=== PATIENT | female | born 2000 | race Caucasian/White ===

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

== ENCOUNTER 2021-01-13 16:00 | Emergency (ER) | payer MEDICAID ==
[~2021-01-13] VITALS: Ht 172.7 cm; Wt 154.6 kg
[2021-01-13 16:11] VITALS: BP 128/77
== END 2021-01-13 16:55 | disposition home or self-care (01) ==
LOC: ER 16:01
DX: J06.9 Acute upper respiratory infection, unspecified (principal); Z20.822 Contact with and (suspected) exposure to COVID-19; R05 Cough; J34.89 Other specified disorders of nose and nasal sinuses; K21.9 Gastro-esophageal reflux disease without esophagitis; F41.9 Anxiety disorder, unspecified; F32.9 Major depressive disorder, single episode, unspecified; Z86.718 Personal history of other venous thrombosis and embolism; Z98.890 Other specified postprocedural states; Z79.899 Other long term (current) drug therapy
CPT/HCPCS: 87635; 99283; C9803

== ENCOUNTER 2021-04-27 22:26 | Emergency (ER) | payer MEDICAID ==
[~2021-04-27] VITALS: Ht 172.7 cm; Wt 145.0 kg
[2021-04-27 22:41] VITALS: BP 157/102
[2021-04-27] MEDS ORDERED: HYDR-3965 PO (23:03)
[2021-04-27] MEDS ORDERED: ONDA4TAB6 PO (23:03)
[2021-04-27] MEDS ORDERED: PENI500T2 PO (23:03)
[2021-04-27] MEDS ORDERED: ondansetron 4mg rapidly disintigrating tab PO ONE (23:05)
[2021-04-27] MEDS ORDERED: HYDROcodone/acetaminophen 5mg/325mg tablet PO ONE (23:05)
== END 2021-04-27 23:15 | disposition home or self-care (01) ==
LOC: ER 22:26
DX: K02.9 Dental caries, unspecified (principal); K08.89 Other specified disorders of teeth and supporting structures; K21.9 Gastro-esophageal reflux disease without esophagitis; F41.9 Anxiety disorder, unspecified; F32.9 Major depressive disorder, single episode, unspecified; Z86.718 Personal history of other venous thrombosis and embolism; Z98.890 Other specified postprocedural states; Z79.2 Long term (current) use of antibiotics; Z79.899 Other long term (current) drug therapy
CPT/HCPCS: 99283

== ENCOUNTER 2021-08-01 11:33 | Emergency (ER) | payer MEDICAID ==
[~2021-08-01] VITALS: Ht 167.6 cm; Wt 109.0 kg
[~2021-08-01 11:33] MED LIST changes: +ONDA4TAB6 PO
[2021-08-01] MEDS ORDERED: CASIRIVIMAB/IMDEVIMAB inject. 10 ML in normal saline 100ml IV soln 100 ML IV ONE (13:30)
[2021-08-01] MEDS ORDERED: ALBU8HFA PO (13:37)
[2021-08-01] MEDS ORDERED: ACET-1025 PO (13:37)
[2021-08-01] MEDS ORDERED: CASIRIVIMAB/IMDEVIMAB (REGEN-COV) 600mg/600mg inject. SQ ONE ×4 (13:45)
[2021-08-01] MEDS ORDERED: LORazepam 1 MG tablet PO ONE (13:50)
[2021-08-01 15:29] VITALS: BP 139/97
== END 2021-08-01 15:31 | disposition home or self-care (01) ==
LOC: ER 11:34
DX: U07.1 COVID-19 (principal); J12.82 Pneumonia due to coronavirus disease 2019; R51.9 Headache, unspecified; J02.9 Acute pharyngitis, unspecified; R53.83 Other fatigue; R43.8 Other disturbances of smell and taste; R19.7 Diarrhea, unspecified; R11.0 Nausea; R06.02 Shortness of breath; R05.9 Cough, unspecified; R09.81 Nasal congestion; K21.9 Gastro-esophageal reflux disease without esophagitis; F41.9 Anxiety disorder, unspecified; F32.9 Major depressive disorder, single episode, unspecified; Z86.718 Personal history of other venous thrombosis and embolism; Z98.890 Other specified postprocedural states; Z79.899 Other long term (current) drug therapy
CPT/HCPCS: 71045; 87635; 99284; C9803; M0243; Q0244

== ENCOUNTER 2021-08-04 08:42 | Emergency (ER) | payer MEDICAID ==
[~2021-08-04] VITALS: Ht 172.7 cm; Wt 145.0 kg
[~2021-08-04 08:42] MED LIST changes: +ACET-1025 PO; +ALBU8HFA PO
[2021-08-04] MEDS ORDERED: pantoprazole 40MG/D5 100ML BAG 100 ML IV ONE (11:10)
[2021-08-04] MEDS ORDERED: ondansetron/PF 4mg/2ml inj IV ONE (11:10)
[2021-08-04] MEDS ORDERED: normal saline 1000ML IV soln IVB ONE (11:10)
[2021-08-04] MEDS ORDERED: pantoprazole 40MG/NS 100ML BAG 100 ML IV ONE (11:12)
[2021-08-04 11:51] LABS: BASOPHILS % (AUTO) 0.3 % (0-1); EOSINOPHILS % (AUTO) 0.7 % (0-6); HEMATOCRIT 42.8 % (35.0-45.0); HEMOGLOBIN 14.1 g/dl (12.0-16.0); LYMPHOCYTES # (AUTO) 1.2 X10'3 (1.1-4.8); LYMPHOCYTES % (AUTO) 24.4 % (21-51); MEAN CORPUSCULAR HEMOGLOBIN 25.6 PG (27.0-31.0); MEAN CORPUSCULAR HGB CONC 32.9 g/dL (33.0-36.5); MEAN CORPUSCULAR VOLUME 77.9 FL (78-98); MEAN PLATELET VOLUME 8.2 FL (7.4-10.4); MONOCYTES # (AUTO) 0.4 X10'3 (0-0.9); MONOCYTES % (AUTO) 9.3 % (2-12); NEUTROPHILS # (AUTO) 3.1 X10'3 (1.8-7.7); NEUTROPHILS % (AUTO) 65.3 % (42-75); PLATELET COUNT 257 X10'3 (140-440); RED CELL DISTRIBUTION WIDTH 15.4 % (11.5-14.5); WHITE BLOOD COUNT 4.7 X10'3 (4.5-11.0)
[2021-08-04 12:08] LABS: ALANINE AMINOTRANSFERASE 54 U/L (12-78); ALBUMIN 3.3 G/DL (3.4-5.0); ALBUMIN/GLOBULIN RATIO 0.8 (1.1-1.5); ALKALINE PHOSPHATASE 82 IU/L (20-180); ANION GAP 12 (8-16); ASPARTATE AMINO TRANSFERASE 40 U/L (10-37); BILIRUBIN,TOTAL 0.3 MG/DL (0.1-1.0); BLOOD UREA NITROGEN 9 MG/DL (7-18); CALCIUM 8.7 MG/DL (8.5-10.1); CHLORIDE 107 MMOL/L (99-107); CREATININE 0.69 MG/DL (0.40-0.90); GLUCOSE 90 MG/DL (70-104); LIPASE 118 U/L (73-393); POTASSIUM 3.9 MMOL/L (3.5-5.1); SODIUM 143 MMOL/L (135-145); TOTAL CARBON DIOXIDE 23.8 MMOL/L (24-32); TOTAL PROTEIN 7.5 G/DL (6.4-8.2); eGFR > 90 ML/MIN
[2021-08-04 13:59] LABS: HCG SERUM QL NEGATIVE
[2021-08-04] MEDS ORDERED: iohexol 350MG/ML 100ml bottle IV ONE (14:49)
[2021-08-04] MEDS ORDERED: AZIT250T PO (17:15)
[2021-08-04] MEDS ORDERED: BENZ-38 PO (17:15)
[2021-08-04] MEDS ORDERED: APIX5TAB3 PO ×2 (17:28→17:31)
[2021-08-04 17:39] VITALS: BP 102/69
== END 2021-08-04 17:47 | disposition home or self-care (01) ==
LOC: ER 08:43
DX: U07.1 COVID-19 (principal); M79.7 Fibromyalgia; K21.9 Gastro-esophageal reflux disease without esophagitis; F17.200 Nicotine dependence, unspecified, uncomplicated; F12.90 Cannabis use, unspecified, uncomplicated; Z98.890 Other specified postprocedural states; Z86.718 Personal history of other venous thrombosis and embolism; Z79.2 Long term (current) use of antibiotics; Z79.899 Other long term (current) drug therapy
CPT/HCPCS: 36415; 71045; 71275; 80053; 83690; 84703; 85025; 96361; 96365; 96366; 96375; 99285; C9113; J2405; J7030; Q9967

== ENCOUNTER 2021-08-20 23:13 | Emergency (ER) | payer MEDICAID ==
[~2021-08-20] VITALS: Ht 172.7 cm; Wt 147.0 kg
[~2021-08-20 23:13] MED LIST changes: -ACET-1025 PO; +APIX5TAB3 PO; +BENZ-38 PO
[2021-08-20 23:24] VITALS: BP 153/91
== END 2021-08-21 03:19 | disposition left against medical advice (07) ==
LOC: ER 23:13
DX: M79.605 Pain in left leg (principal); M79.604 Pain in right leg; Z53.21 Procedure and treatment not carried out due to patient leaving prior to being seen by health care provider

== ENCOUNTER 2022-01-04 08:38 | Outpatient (CLI) | payer MEDICAID ==
[~2022-01-04 08:38] MED LIST changes: -ALBU8HFA PO; -BENZ-38 PO
[2022-01-04] MEDS ORDERED: IODIXANOL 270 MG/ML INFUS..BTL 100ML inj. IV ONE (09:40)
== END 2022-01-04 23:59 | disposition home or self-care (01) ==
LOC: RAD 08:38
PROVIDERS: ATTEND Physician Assistant
DX: K76.0 Fatty (change of) liver, not elsewhere classified (principal); K42.9 Umbilical hernia without obstruction or gangrene; M47.814 Spondylosis without myelopathy or radiculopathy, thoracic region; I26.99 Other pulmonary embolism without acute cor pulmonale
CPT/HCPCS: 71260; 74160; Q9967

== ENCOUNTER 2022-01-23 09:35 | Emergency (ER) | payer MEDICAID ==
[~2022-01-23] VITALS: Ht 172.7 cm; Wt 141.8 kg
[2022-01-23 09:41] VITALS: BP 154/97
== END 2022-01-23 12:00 | disposition home or self-care (01) ==
LOC: ER 09:37
DX: J06.9 Acute upper respiratory infection, unspecified (principal); Z20.822 Contact with and (suspected) exposure to COVID-19; K21.9 Gastro-esophageal reflux disease without esophagitis; F41.9 Anxiety disorder, unspecified; F32.9 Major depressive disorder, single episode, unspecified; F12.10 Cannabis abuse, uncomplicated; Z79.899 Other long term (current) drug therapy
CPT/HCPCS: 71045; 87081; 87502; 87503; 87880; 99284

== ENCOUNTER 2022-01-26 12:34 | Emergency (ER) | payer MEDICAID ==
[~2022-01-26] VITALS: Ht 172.7 cm; Wt 141.8 kg
[2022-01-26 12:35] VITALS: BP 153/94
[2022-01-26] MEDS ORDERED: SULF1TAB45 PO (13:46)
== END 2022-01-26 14:15 | disposition home or self-care (01) ==
LOC: ER 12:34
DX: L02.211 Cutaneous abscess of abdominal wall (principal); K21.9 Gastro-esophageal reflux disease without esophagitis; F41.9 Anxiety disorder, unspecified; F12.10 Cannabis abuse, uncomplicated; Z79.899 Other long term (current) drug therapy
CPT/HCPCS: 99281; 99283

== ENCOUNTER 2022-03-09 12:13 | Emergency (ER) | payer MEDICAID ==
[~2022-03-09] VITALS: Ht 172.7 cm; Wt 136.4 kg
[2022-03-09 12:33] VITALS: BP 129/90
[2022-03-09] MEDS ORDERED: gabapentin 300mg capsule PO ONE (14:35)
[2022-03-09] MEDS ORDERED: HYDROcodone/acetaminophen 5mg/325mg tablet PO ONE (16:05)
== END 2022-03-09 16:57 | disposition home or self-care (01) ==
LOC: ER 12:14
DX: M54.59 Other low back pain (principal); M79.604 Pain in right leg; R19.7 Diarrhea, unspecified; K21.9 Gastro-esophageal reflux disease without esophagitis; F31.9 Bipolar disorder, unspecified; F17.200 Nicotine dependence, unspecified, uncomplicated; F12.10 Cannabis abuse, uncomplicated; Z98.890 Other specified postprocedural states; Z79.899 Other long term (current) drug therapy
CPT/HCPCS: 72100; 72220; 73502; 99284

== ENCOUNTER 2022-04-03 15:25 | Emergency (ER) | payer MEDICAID ==
[~2022-04-03] VITALS: Ht 172.7 cm; Wt 140.0 kg
[2022-04-03 15:51] VITALS: BP 157/93
[2022-04-03 17:59] LABS: URINE HCG NEGATIVE (NEG)
== END 2022-04-03 18:52 | disposition home or self-care (01) ==
LOC: ER 15:26
DX: S00.83XA Contusion of other part of head, initial encounter (principal); M54.59 Other low back pain; R42 Dizziness and giddiness; K21.9 Gastro-esophageal reflux disease without esophagitis; F31.9 Bipolar disorder, unspecified; F12.10 Cannabis abuse, uncomplicated; Z79.899 Other long term (current) drug therapy; V49.9XXA Car occupant (driver) (passenger) injured in unspecified traffic accident, initial encounter; Y93.89 Activity, other specified; Y92.89 Other specified places as the place of occurrence of the external cause; Y99.8 Other external cause status
CPT/HCPCS: 70450; 72131; 81025; 99284

== ENCOUNTER 2022-04-15 09:31 | Emergency (ER) | payer MEDICAID | END 2022-04-15 12:00 | disposition left against medical advice (07) | LOC: ER 09:31 | DX: R20.0 Anesthesia of skin (principal); Z53.21 Procedure and treatment not carried out due to patient leaving prior to being seen by health care provider ==

== ENCOUNTER 2022-06-06 20:42 | Emergency (ER) | payer MEDICAID ==
[~2022-06-06] VITALS: Ht 172.7 cm; Wt 137.2 kg
[2022-06-06 20:47] VITALS: BP 127/92
[2022-06-06] MEDS ORDERED: bacitracin 15gm ointment TP ONE (21:05)
[2022-06-06] MEDS ORDERED: cephalexin 500mg capsule PO ONE (21:05)
[2022-06-06] MEDS ORDERED: CLIN45GE4 TOP (21:13)
[2022-06-06] MEDS ORDERED: CEPH-585 PO (21:13)
[2022-06-06] MEDS ORDERED: TRET20CR2 TOP (21:13)
== END 2022-06-06 21:37 | disposition home or self-care (01) ==
LOC: ER 20:43
DX: L73.2 Hidradenitis suppurativa (principal); K21.9 Gastro-esophageal reflux disease without esophagitis; F31.9 Bipolar disorder, unspecified; F12.10 Cannabis abuse, uncomplicated; Z79.899 Other long term (current) drug therapy
CPT/HCPCS: 99283

== ENCOUNTER 2022-06-26 16:54 | Emergency (ER) | payer MEDICAID ==
[~2022-06-26] VITALS: Ht 172.7 cm; Wt 139.0 kg
[~2022-06-26 16:54] MED LIST changes: +CEPH-585 PO; +CLIN45GE4 TOP; +TRET20CR2 TOP
[2022-06-26 17:28] VITALS: BP 148/68
== END 2022-06-26 20:01 | disposition left against medical advice (07) ==
LOC: ER 16:57
DX: R11.2 Nausea with vomiting, unspecified (principal); Z53.21 Procedure and treatment not carried out due to patient leaving prior to being seen by health care provider

== ENCOUNTER 2022-09-05 21:09 | Emergency (ER) | payer MEDICAID ==
[~2022-09-05] VITALS: Ht 172.7 cm; Wt 100.0 kg
[2022-09-05 21:12] VITALS: BP 142/91
[2022-09-05] MEDS ORDERED: ipratropium/albuterol 3ml nebule NEB ONE (21:25)
[2022-09-05] MEDS ORDERED: benzonatate 100mg capsule PO ONE (21:25)
[2022-09-05] MEDS ORDERED: acetaminophen 325mg tablet PO ONE (21:25)
[2022-09-05] MEDS ORDERED: guaiFENesin ER 600mg tablet PO ONE (22:20)
[2022-09-05] MEDS ORDERED: LIDOcaine Viscous 15ml cup MM ONE (22:20)
[2022-09-05] MEDS ORDERED: BENZ-38 PO (22:22)
[2022-09-05] MEDS ORDERED: GUAI118S13 PO (22:22)
== END 2022-09-05 22:40 | disposition home or self-care (01) ==
LOC: ER 21:09
DX: J45.901 Unspecified asthma with (acute) exacerbation (principal); K21.9 Gastro-esophageal reflux disease without esophagitis; M79.7 Fibromyalgia; Z86.718 Personal history of other venous thrombosis and embolism; F12.90 Cannabis use, unspecified, uncomplicated; Z72.89 Other problems related to lifestyle; Z98.890 Other specified postprocedural states; Z79.2 Long term (current) use of antibiotics; Z79.899 Other long term (current) drug therapy
CPT/HCPCS: 94640; 94760; 99284

== ENCOUNTER 2022-09-12 14:14 | Emergency (ER) | payer MEDICAID ==
[~2022-09-12] VITALS: Ht 172.7 cm; Wt 140.0 kg
[~2022-09-12 14:14] MED LIST changes: +BENZ-38 PO
[2022-09-12 14:19] VITALS: BP 127/84
== END 2022-09-12 18:41 | disposition left against medical advice (07) ==
LOC: ER 14:14
DX: L05.91 Pilonidal cyst without abscess (principal); Z53.21 Procedure and treatment not carried out due to patient leaving prior to being seen by health care provider

== ENCOUNTER 2022-09-25 18:33 | Emergency (ER) | payer MEDICAID ==
[~2022-09-25] VITALS: Ht 172.7 cm; Wt 141.8 kg
[2022-09-25 19:13] LABS: BASOPHILS # (AUTO) 0.1 X10'3 (0-0.2); BASOPHILS % (AUTO) 0.4 % (0-1); EOSINOPHILS # (AUTO) 0.8 X10'3 (0-0.9); EOSINOPHILS % (AUTO) 5.7 % (0-6); HEMATOCRIT 42.9 % (35.0-45.0); HEMOGLOBIN 13.9 g/dl (12.0-16.0); LYMPHOCYTES # (AUTO) 2.1 X10'3 (1.1-4.8); LYMPHOCYTES % (AUTO) 15.1 % (21-51); MEAN CORPUSCULAR HEMOGLOBIN 26.6 PG (27.0-31.0); MEAN CORPUSCULAR HGB CONC 32.5 g/dL (33.0-36.5); MEAN CORPUSCULAR VOLUME 81.9 FL (78-98); MEAN PLATELET VOLUME 7.6 FL (7.4-10.4); MONOCYTES # (AUTO) 1.1 X10'3 (0-0.9); MONOCYTES % (AUTO) 7.7 % (2-12); NEUTROPHILS # (AUTO) 10.1 X10'3 (1.8-7.7); NEUTROPHILS % (AUTO) 71.1 % (42-75); PLATELET COUNT 347 X10'3 (140-440); RED BLOOD COUNT 5.24 X10'6 (4.20-5.60); RED CELL DISTRIBUTION WIDTH 15.1 % (11.5-14.5); WHITE BLOOD COUNT 14.2 X10'3 (4.5-11.0)
[2022-09-25 19:31] LABS: ALANINE AMINOTRANSFERASE 24 U/L (12-78); ALBUMIN 3.7 G/DL (3.4-5.0); ALBUMIN/GLOBULIN RATIO 0.9 (1.1-1.5); ALKALINE PHOSPHATASE 107 IU/L (46-116); ANION GAP 7 (8-16); ASPARTATE AMINO TRANSFERASE 20 U/L (10-37); BILIRUBIN,TOTAL 0.4 MG/DL (0.1-1.0); BLOOD UREA NITROGEN 8 MG/DL (7-18); BUN/CREATININE RATIO 11.1 (6.6-38.0); CALCIUM 9.2 MG/DL (8.5-10.1); CHLORIDE 106 MMOL/L (99-107); CREATININE 0.72 MG/DL (0.40-0.90); GLUCOSE 106 MG/DL (70-104); POTASSIUM 3.7 MMOL/L (3.5-5.1); SODIUM 140 MMOL/L (135-145); TOTAL CARBON DIOXIDE 26.7 MMOL/L (24-32); TOTAL PROTEIN 7.8 G/DL (6.4-8.2); eGFR > 90 ML/MIN
[2022-09-25] MEDS: ipratropium 0.5 MG/2.5ML nebule IH ONE (19:43)
[2022-09-25] MEDS: albuterol 2.5 MG/3 ML nebule CONTNEB PRN (19:44)
[2022-09-25] MEDS: normal saline 1000ML IV soln IVB ONE ×2 (19:47→21:01)
[2022-09-25] MEDS: methylPREDNISolone sod succ 125mg/2ml vial IV ONE (19:47)
[2022-09-25 20:08] LABS: D-DIMER 0.71 MG/L FEU (0-0.50)
[2022-09-25] MEDS ORDERED: iohexol 350MG/ML 100ml bottle IV ONE (20:35)
[2022-09-25] MEDS ORDERED: AZIT250T82 PO (21:56)
[2022-09-25] MEDS ORDERED: AMOX-117 PO (21:56)
[2022-09-25] MEDS ORDERED: AZIT-83 PO (21:56)
[2022-09-25] MEDS: amox tr/potassium clavulanate 875/125mg TAB PO ONE (22:03)
[2022-09-25] MEDS: azithromycin 250mg tablet PO ONE (22:03)
[2022-09-25 22:26] VITALS: BP 129/88
== END 2022-09-25 22:27 | disposition home or self-care (01) ==
LOC: ER 18:34
DX: J18.9 Pneumonia, unspecified organism (principal); Z20.822 Contact with and (suspected) exposure to COVID-19; F31.9 Bipolar disorder, unspecified; K21.9 Gastro-esophageal reflux disease without esophagitis; F12.10 Cannabis abuse, uncomplicated; Z98.890 Other specified postprocedural states; Z79.899 Other long term (current) drug therapy
CPT/HCPCS: 36415; 71045; 71275; 80053; 83735; 83880; 84484; 85025; 85379; 87635; 93005; 94640; 94644; 96361; 96374; 99285; C9803; J2930; J3490; J7030; Q9967; 94760; A7015

== ENCOUNTER 2023-04-11 19:00 | Emergency (ER) | payer MEDICAID ==
[~2023-04-11] VITALS: Ht 172.7 cm; Wt 136.4 kg
[~2023-04-11 19:00] MED LIST changes: -BENZ-38 PO; +LIDO20SO16 PO
[2023-04-11 19:08] VITALS: BP 136/78; PULSE 95; RESP 16; TEMP 97.8; O2SAT 97
[2023-04-11] MEDS ORDERED: clindamycin 150mg capsule PO ONE (22:45)
[2023-04-11] MEDS ORDERED: CLIN-214 PO (22:47)
== END 2023-04-11 23:08 | disposition home or self-care (01) ==
LOC: ER 19:01
DX: L02.412 Cutaneous abscess of left axilla (principal); K21.9 Gastro-esophageal reflux disease without esophagitis; F41.9 Anxiety disorder, unspecified; F12.10 Cannabis abuse, uncomplicated; Z79.899 Other long term (current) drug therapy
CPT/HCPCS: 10060; 99283

== ENCOUNTER 2023-06-11 13:59 | Emergency (ER) | payer MEDICAID ==
[~2023-06-11] VITALS: Ht 172.7 cm; Wt 150.0 kg
[~2023-06-11 13:59] MED LIST changes: -CEPH-585 PO; +CLIN-214 PO
[2023-06-11 14:15] VITALS: BP 131/88; PULSE 89; RESP 16; TEMP 98.5; O2SAT 98
[2023-06-11] MEDS ORDERED: CEFD300C3 PO (14:21)
== END 2023-06-11 15:16 | disposition home or self-care (01) ==
LOC: ER 14:00
DX: J40 Bronchitis, not specified as acute or chronic (principal); M79.7 Fibromyalgia; Z98.890 Other specified postprocedural states; Z79.899 Other long term (current) drug therapy; Z79.2 Long term (current) use of antibiotics
CPT/HCPCS: 99283

== ENCOUNTER 2023-08-14 19:55 | Emergency (ER) | payer MEDICAID ==
[~2023-08-14] VITALS: Ht 172.7 cm; Wt 146.2 kg
[2023-08-14 20:17] LABS: URINE HCG NEGATIVE (NEG)
[2023-08-14] MEDS ORDERED: normal saline 1000ML IV soln IVB ONE (20:25)
[2023-08-14] MEDS ORDERED: morphine 4 MG/ML inj SYRINge IV PRN (20:25)
[2023-08-14] MEDS ORDERED: ondansetron/PF 4mg/2ml inj IV ONE (20:25)
[2023-08-14 20:49] LABS: BILIRUBIN,URINE NEGATIVE (Neg); CLARITY,URINE SLIGHTLY CLOUDY (Clear); COLOR,URINE YELLOW (Yellow); GLUCOSE, URINE NEGATIVE (Neg); KETONES,URINE NEGATIVE (Neg); LEUKOCYTE ESTERASE ,URINE SMALL (Neg); NITRITES, URINE NEGATIVE (Neg); OCCULT BLOOD,URINE NEGATIVE (Neg); PH,URINE 5.5 (4.8-8.0); PROTEIN,URINE TRACE mg/dl (Neg); UA COLLECTION TYPE CLN CATCH MIDSTREAM; UROBILINOGEN,URINE 0.2 E.U/dL (0.2-1.0)
[2023-08-14 21:02] LABS: BACTERIA,URINE 3+ /HPF (Neg); MUCUS STRANDS NONE SEEN /LPF (Neg); RBC,URINE NONE SEEN /HPF (0-2); SQUAMOUS EPITHELIAL CELL,UR MANY /LPF (FEW); WBC,URINE 0-4 /HPF (0-4)
[2023-08-14 21:08] LABS: BASOPHILS % (AUTO) 0.3 % (0-1); EOSINOPHILS # (AUTO) 0.6 X10'3 (0-0.9); EOSINOPHILS % (AUTO) 4.7 % (0-6); HEMATOCRIT 41.7 % (35.0-45.0); HEMOGLOBIN 13.5 g/dl (12.0-16.0); LYMPHOCYTES # (AUTO) 1.8 X10'3 (1.1-4.8); LYMPHOCYTES % (AUTO) 13.9 % (21-51); MEAN CORPUSCULAR HEMOGLOBIN 26.1 PG (27.0-31.0); MEAN CORPUSCULAR HGB CONC 32.4 g/dL (33.0-36.5); MEAN CORPUSCULAR VOLUME 80.7 FL (78-98); MEAN PLATELET VOLUME 8.5 FL (7.4-10.4); MONOCYTES # (AUTO) 1.1 X10'3 (0-0.9); MONOCYTES % (AUTO) 8.9 % (2-12); NEUTROPHILS # (AUTO) 9.3 X10'3 (1.8-7.7); NEUTROPHILS % (AUTO) 72.2 % (42-75); PLATELET COUNT 343 X10'3 (140-440); RED BLOOD COUNT 5.17 X10'6 (4.20-5.60); RED CELL DISTRIBUTION WIDTH 15.1 % (11.5-14.5); WHITE BLOOD COUNT 12.8 X10'3 (4.5-11.0)
[2023-08-14 21:17] LABS: ALANINE AMINOTRANSFERASE 36 U/L (12-78); ALBUMIN 3.5 G/DL (3.4-5.0); ALBUMIN/GLOBULIN RATIO 0.8 (1.1-1.5); ALKALINE PHOSPHATASE 114 IU/L (46-116); ANION GAP 6 (8-16); ASPARTATE AMINO TRANSFERASE 24 U/L (10-37); BILIRUBIN,TOTAL 0.6 MG/DL (0.1-1.0); BLOOD UREA NITROGEN 7 MG/DL (7-18); BUN/CREATININE RATIO 8.9 (10.0-20.0); CALCIUM 9.2 MG/DL (8.5-10.1); CHLORIDE 105 MMOL/L (99-107); CREATININE 0.79 MG/DL (0.40-0.90); GLUCOSE 92 MG/DL (70-104); LIPASE 31 U/L (16-77); POTASSIUM 4.1 MMOL/L (3.5-5.1); SODIUM 137 MMOL/L (135-145); TOTAL PROTEIN 7.8 G/DL (6.4-8.2); eCRCL 113 ML/MIN; eGFR > 90 ML/MIN
[2023-08-14] MEDS ORDERED: ONDA4TAB12 PO (21:33)
[2023-08-14] MEDS ORDERED: HYDR-3965 PO (21:33)
[2023-08-14] MEDS ORDERED: SULF1TAB49 PO (21:33)
[2023-08-14 21:58] VITALS: BP 116/76; PULSE 89; RESP 14; TEMP 98.5; O2SAT 99
== END 2023-08-14 22:00 | disposition home or self-care (01) ==
LOC: ER 19:56
DX: K52.9 Noninfective gastroenteritis and colitis, unspecified (principal); R11.2 Nausea with vomiting, unspecified; R14.0 Abdominal distension (gaseous); R10.33 Periumbilical pain; R10.31 Right lower quadrant pain; R10.32 Left lower quadrant pain; F12.90 Cannabis use, unspecified, uncomplicated; M79.7 Fibromyalgia; Z86.718 Personal history of other venous thrombosis and embolism; Z72.89 Other problems related to lifestyle; Z79.2 Long term (current) use of antibiotics; Z79.899 Other long term (current) drug therapy
CPT/HCPCS: 36415; 74176; 80053; 81001; 81025; 83690; 84484; 85025; 96361; 96374; 99285; J2405; J7030

== ENCOUNTER 2023-11-01 14:25 | Emergency (ER) | payer MEDICAID ==
[~2023-11-01] VITALS: Ht 172.7 cm; Wt 145.8 kg
[~2023-11-01 14:25] MED LIST changes: +ONDA4TAB12 PO
[2023-11-01 14:41] VITALS: BP 145/79; PULSE 94; RESP 18; TEMP 97; O2SAT 98
== END 2023-11-01 18:53 | disposition left against medical advice (07) ==
LOC: ER 14:26
DX: O26.891 Other specified pregnancy related conditions, first trimester (principal); R10.30 Lower abdominal pain, unspecified; Z3A.01 Less than 8 weeks gestation of pregnancy; Z53.21 Procedure and treatment not carried out due to patient leaving prior to being seen by health care provider
CPT/HCPCS: 99281

== ENCOUNTER 2023-11-16 14:31 | Emergency (ER) | payer MEDICAID ==
[~2023-11-16] VITALS: Ht 172.7 cm; Wt 141.8 kg
[2023-11-16 15:38] VITALS: O2SAT 99
[2023-11-16] MEDS ORDERED: DIPH25CA83 PO (15:49)
[2023-11-16] MEDS ORDERED: METO5TAB98 PO (15:49)
[2023-11-16] MEDS: metoclopramide 5 mg/ml inj IM ONE (16:12)
[2023-11-16] MEDS: diphenhydrAMINE 50 mg/ml inj IM ONE (16:12)
[2023-11-16 16:18] VITALS: BP 141/72; PULSE 94; RESP 16; TEMP 98.1
== END 2023-11-16 16:21 | disposition home or self-care (01) ==
LOC: ER 14:31
DX: O21.9 Vomiting of pregnancy, unspecified (principal); Z3A.08 8 weeks gestation of pregnancy; K21.9 Gastro-esophageal reflux disease without esophagitis; F12.90 Cannabis use, unspecified, uncomplicated; Z88.5 Allergy status to narcotic agent; Z79.2 Long term (current) use of antibiotics; Z79.899 Other long term (current) drug therapy
CPT/HCPCS: 96372; 99284; J1200; J2765

== ENCOUNTER 2023-11-19 09:38 | Emergency (ER) | payer MEDICAID ==
[~2023-11-19] VITALS: Ht 172.7 cm; Wt 141.7 kg
[~2023-11-19 09:38] MED LIST changes: +DIPH25CA83 PO; +METO5TAB98 PO
[2023-11-19] MEDS: normal saline 1000ML IV soln IVB ONE (11:39)
[2023-11-19 11:45] LABS: ALBUMIN 3.5 G/DL (3.4-5.0); ANION GAP 9 (8-16); BLOOD UREA NITROGEN 5 MG/DL (7-18); BUN/CREATININE RATIO 7.6 (10.0-20.0); CHLORIDE 103 MMOL/L (99-107); CREATININE 0.66 MG/DL (0.40-0.90); POTASSIUM 3.8 MMOL/L (3.5-5.1); SODIUM 138 MMOL/L (135-145); TOTAL CARBON DIOXIDE 26.3 MMOL/L (24-32); eCRCL 135 ML/MIN; eGFR > 90 ML/MIN
[2023-11-19 11:50] LABS: GLUCOSE 79 MG/DL (70-104)
[2023-11-19] MEDS ORDERED: ONDA-103 PO (12:37)
[2023-11-19] MEDS: ondansetron/PF 4mg/2ml inj IV ONE (13:03)
[2023-11-19 13:15] VITALS: BP 112/69; PULSE 77; RESP 17; TEMP 98.2; O2SAT 100
== END 2023-11-19 13:17 | disposition home or self-care (01) ==
LOC: ER 09:39
DX: O21.9 Vomiting of pregnancy, unspecified (principal); K21.9 Gastro-esophageal reflux disease without esophagitis; F12.90 Cannabis use, unspecified, uncomplicated; Z88.6 Allergy status to analgesic agent; Z88.5 Allergy status to narcotic agent; Z79.899 Other long term (current) drug therapy; Z79.2 Long term (current) use of antibiotics; Z3A.08 8 weeks gestation of pregnancy
CPT/HCPCS: 36415; 80048; 96361; 96374; 99283; J2405; J7030

== ENCOUNTER 2023-12-14 07:45 | Outpatient (CLI) | payer MEDICAID ==
[~2023-12-14 07:45] MED LIST changes: +ONDA-103 PO
== END 2023-12-14 23:59 | disposition home or self-care (01) ==
LOC: RAD 07:45
PROVIDERS: ATTEND Obstetrics & Gynecology
DX: O09.01 Supervision of pregnancy with history of infertility, first trimester (principal); Z3A.10 10 weeks gestation of pregnancy
CPT/HCPCS: 76801

== ENCOUNTER 2024-02-09 11:52 | Emergency (ER) | payer MEDICAID ==
[~2024-02-09] VITALS: Ht 172.7 cm; Wt 107.3 kg
[~2024-02-09 11:52] MED LIST changes: -METO5TAB98 PO; +ONDA-243 PO; -ONDA4TAB12 PO
[2024-02-09] MEDS: normal saline 1000ML IV soln IVB ONE (12:39)
[2024-02-09] MEDS: diphenhydrAMINE 50 mg/ml inj IV ONE (12:39)
[2024-02-09] MEDS: metoclopramide 5 mg/ml inj IV ONE (12:39)
[2024-02-09 12:57] LABS: BASOPHILS % (AUTO) 0.2 % (0-1); EOSINOPHILS # (AUTO) 0.2 X10'3 (0-0.9); EOSINOPHILS % (AUTO) 1.7 % (0-6); HEMATOCRIT 38.6 % (35.0-45.0); HEMOGLOBIN 12.6 g/dl (12.0-16.0); LYMPHOCYTES # (AUTO) 1.2 X10'3 (1.1-4.8); LYMPHOCYTES % (AUTO) 9.8 % (21-51); MEAN CORPUSCULAR HEMOGLOBIN 26.7 PG (27.0-31.0); MEAN CORPUSCULAR HGB CONC 32.6 g/dL (33.0-36.5); MEAN CORPUSCULAR VOLUME 81.8 FL (78-98); MEAN PLATELET VOLUME 8.5 FL (7.4-10.4); MONOCYTES # (AUTO) 0.8 X10'3 (0-0.9); MONOCYTES % (AUTO) 6.2 % (2-12); NEUTROPHILS # (AUTO) 10.3 X10'3 (1.8-7.7); NEUTROPHILS % (AUTO) 82.1 % (42-75); PLATELET COUNT 283 X10'3 (140-440); RED BLOOD COUNT 4.72 X10'6 (4.20-5.60); RED CELL DISTRIBUTION WIDTH 15.3 % (11.5-14.5); WHITE BLOOD COUNT 12.5 X10'3 (4.5-11.0)
[2024-02-09 13:39] LABS: ALBUMIN 2.9 G/DL (3.4-5.0); ANION GAP 10 (8-16); BLOOD UREA NITROGEN 3 MG/DL (7-18); BUN/CREATININE RATIO 5.2 (10.0-20.0); CHLORIDE 105 MMOL/L (99-107); CREATININE 0.58 MG/DL (0.40-0.90); GLUCOSE 102 MG/DL (70-104); LIPASE 23 U/L (16-77); POTASSIUM 3.7 MMOL/L (3.5-5.1); SODIUM 139 MMOL/L (135-145); TOTAL CARBON DIOXIDE 23.8 MMOL/L (24-32); eCRCL 153 ML/MIN; eGFR > 90 ML/MIN
[2024-02-09 13:41] LABS: BETA HCG,QUANTITATIVE 7342 mIU/ml
[2024-02-09] MEDS ORDERED: POLY119P2 PO (13:54)
[2024-02-09] MEDS: normal saline 1000ml 1,000 ML IV ONE ×2 (14:10)
[2024-02-09 14:24] VITALS: BP 127/73; PULSE 73; RESP 16; TEMP 97.8; O2SAT 100
[2024-02-09 14:50] LABS: BILIRUBIN,URINE NEGATIVE (Neg); CLARITY,URINE CLOUDY (Clear); COLOR,URINE YELLOW (Yellow); GLUCOSE, URINE 100 mg/dl (Neg); KETONES,URINE NEGATIVE (Neg); LEUKOCYTE ESTERASE ,URINE SMALL (Neg); NITRITES, URINE NEGATIVE (Neg); OCCULT BLOOD,URINE NEGATIVE (Neg); PH,URINE 7.5 (4.8-8.0); PROTEIN,URINE NEGATIVE (Neg); UROBILINOGEN,URINE 0.2 E.U/dL (0.2-1.0)
[2024-02-09 15:04] LABS: UA COLLECTION TYPE CLN CATCH MIDSTREAM
[2024-02-09 15:05] LABS: BACTERIA,URINE 4+ /HPF (Neg); RBC,URINE NONE SEEN /HPF (0-2); SQUAMOUS EPITHELIAL CELL,UR MODERATE /LPF (FEW); WBC,URINE 0-4 /HPF (0-4)
== END 2024-02-09 14:32 | disposition home or self-care (01) ==
LOC: ER 11:52
DX: O21.8 Other vomiting complicating pregnancy (principal); Z3A.20 20 weeks gestation of pregnancy; O99.612 Diseases of the digestive system complicating pregnancy, second trimester; R35.0 Frequency of micturition; E86.0 Dehydration; K21.9 Gastro-esophageal reflux disease without esophagitis; F12.90 Cannabis use, unspecified, uncomplicated; F41.9 Anxiety disorder, unspecified; F32.A Depression, unspecified; Z98.890 Other specified postprocedural states; Z86.718 Personal history of other venous thrombosis and embolism; Z72.89 Other problems related to lifestyle; Z88.8 Allergy status to other drugs, medicaments and biological substances; Z79.2 Long term (current) use of antibiotics; Z79.899 Other long term (current) drug therapy
CPT/HCPCS: 36415; 80048; 81001; 83690; 84702; 85025; 87088; 96361; 96374; 96375; 99284; J1200; J2765; J7030

== ENCOUNTER 2024-03-19 20:08 | Emergency (ER) | payer MEDICAID ==
[~2024-03-19] VITALS: Ht 172.7 cm; Wt 148.2 kg
[~2024-03-19 20:08] MED LIST changes: +POLY119P2 PO
[2024-03-19] MEDS: LIDOcaine 1% W/epiNEPHrine 1:100,000 20ml vial IJ ONE (22:17)
[2024-03-19 22:33] VITALS: BP 146/86; PULSE 68; RESP 18; TEMP 98.6; O2SAT 99
== END 2024-03-19 22:35 | disposition home or self-care (01) ==
LOC: ER 20:09
DX: O26.892 Other specified pregnancy related conditions, second trimester (principal); S90.851A Superficial foreign body, right foot, initial encounter; L02.211 Cutaneous abscess of abdominal wall; K21.9 Gastro-esophageal reflux disease without esophagitis; F41.9 Anxiety disorder, unspecified; F32.A Depression, unspecified; F12.90 Cannabis use, unspecified, uncomplicated; Z3A.24 24 weeks gestation of pregnancy; Z88.5 Allergy status to narcotic agent; Z79.899 Other long term (current) drug therapy; Z79.2 Long term (current) use of antibiotics; X58.XXXA Exposure to other specified factors, initial encounter; Y93.89 Activity, other specified; Y92.89 Other specified places as the place of occurrence of the external cause; Y99.8 Other external cause status
CPT/HCPCS: 10120; 99285; A6449

== ENCOUNTER 2024-08-27 16:07 | Emergency (ER) | payer MEDICAID ==
[~2024-08-27] VITALS: Ht 172.7 cm; Wt 147.2 kg
[2024-08-27] MEDS: LIDOcaine 1% W/epiNEPHrine 1:100,000 20ml vial IJ STA (18:07)
[2024-08-27] MEDS: LIDOcaine 1% W/epiNEPHrine 1:100,000 20ml vial SQ ONE (18:39)
[2024-08-27] MEDS ORDERED: CEPH-585 PO (19:45)
[2024-08-27 19:47] VITALS: BP 142/80; PULSE 84; RESP 16; TEMP 97.7; O2SAT 98
== END 2024-08-27 19:49 | disposition home or self-care (01) ==
LOC: ER 16:08
DX: S61.310A Laceration without foreign body of right index finger with damage to nail, initial encounter (principal); K21.9 Gastro-esophageal reflux disease without esophagitis; M79.7 Fibromyalgia; F41.9 Anxiety disorder, unspecified; F32.A Depression, unspecified; F12.90 Cannabis use, unspecified, uncomplicated; Z72.89 Other problems related to lifestyle; Z88.5 Allergy status to narcotic agent; Z79.899 Other long term (current) drug therapy; Z86.718 Personal history of other venous thrombosis and embolism; W23.2XXA Caught, crushed, jammed or pinched between a moving and stationary object, initial encounter; Y93.89 Activity, other specified; Y92.89 Other specified places as the place of occurrence of the external cause; Y99.8 Other external cause status
CPT/HCPCS: 12001; 73140; 99283; A6449

== ENCOUNTER 2024-10-19 09:30 | Emergency (ER) | payer MEDICAID ==
[~2024-10-19] VITALS: Ht 172.7 cm; Wt 149.1 kg
[2024-10-19 09:42] VITALS: BP 145/88; PULSE 100; RESP 18; O2SAT 96
[2024-10-19 10:39] LABS: URINE AMPHETAMINE SCREEN NEGATIVE (Neg); URINE BARBITUATE SCREEN NEGATIVE (Neg); URINE BENZODIAZEPINES SCREEN NEGATIVE (Neg); URINE CANNABINOID SCREEN POSITIVE (Neg); URINE COCAINE SCREEN NEGATIVE (Neg); URINE METHADONE SCREEN NEGATIVE (Neg); URINE OPIATE SCREEN NEGATIVE (Neg); URINE PHENCYCLIDINE SCREEN NEGATIVE (Neg)
[2024-10-19 11:45] VITALS: TEMP 97.5
== END 2024-10-19 11:47 | disposition home or self-care (01) ==
LOC: ER 09:31
DX: R82.5 Elevated urine levels of drugs, medicaments and biological substances (principal); Z88.5 Allergy status to narcotic agent
CPT/HCPCS: 36415; 80305; 80320; 99283

== ENCOUNTER 2025-01-20 15:26 | Emergency (ER) | payer MEDICAID ==
[~2025-01-20] VITALS: Ht 172.7 cm; Wt 113.5 kg
--- NOTE | 2025-01-20 15:43 | ELECTROCARDIOGRAPH REPORT ---
[facility] Test Date: 2025-01-20 Test Time: 15:42:37 Pat Name: ISAURA WEBER Department: EMERGENCY ROOM Room: Gender: F Software Configuration Specialist: LAYLA : 2000 Requested By: MARY DOUGLAS Order Number: [id number] Reading MD: Measurements Intervals [place] Rate: 100 P: 27 FL: 163 QRS: 82 QRSD: 98 T: 28 QT: 334 QTc: 431 Interpretive Statements Sinus tachycardia Low voltage, precordial leads RSR' in V1 or V2, right VCD or RVH Please click the below link to view image of tracing.
[2025-01-20 16:41] VITALS: BP 139/93; PULSE 95; RESP 16; TEMP 97.8; O2SAT 98
--- NOTE | 2025-01-20 16:46 | Physician Documentation ---
History of Present Illness ~ Chief Complaint: Multiple Medical Complaints Stated Complaint: HEADACHE Primary Medical Doctor: [facility] HPI Old female patient presents to the ED with a complaint of two weeks of headache and general malaise. She says she also developed chest pain sharp in nature. She denies any history of smoking control. Day of Onset: Jan 20, 2025 Medication Reconciliation Allergies: Coded Allergies: hydrocodone (Verified Allergy, Mild, RASH, VOMITING, 03/19/24) Uncoded Allergies: NARCOTICS (Allergy, Severe, 11/16/23) Scheduled Apixaban (Eliquis), 1 TAB PO Q12H Clindamycin HCl (Clindamycin HCl CAPSULE), 1 CAP PO TID Clindamycin Phos/Benzoyl Perox (Clind pH-Benzoyl Perox 1.2-5%), 1 APPLIC TOP D AILY Diphenhydramine Hcl (Benadryl), 1 CAP PO HS Docusate Sodium (Docusate Sodium), 2 ML TOP BID Lidocaine Hcl (Xylocaine Viscous), 5 ML PO Q2H PRN SORE THROAT Ondansetron Hcl (Zofran), 1 TAB PO Q6H Polyethylene Glycol 3350 (Miralax), 17 GM PO DAILY Tretinoin (Retin-A), 1 APPLIC TOP HS Scheduled PRN ONDANSETRON ODT 4mg tablet (Ondansetron Odt), 1 TAB PO Q6H PRN PRN for nausea/vomiting Ondansetron HCl (Ondansetron HCl), 1 TAB PO Q6H PRN PRN for nausea/vomiting Miscellaneous Medications Home Med List (No Home Medications), (Reported) Past Medical History Past Medical History: No Pertinent History, Pneumonia, GERD, *MUSCULOSKELETAL*, Deep Vein Thrombosis, Fibromyalgia, Anxiety, Depression Past Surgical History: other Other Past Surgical History: Pilonidal cystectomy x2 Alcohol Use: Occasionally Drug Use: marijuana Lives with: Family Lives In: Home Occupation: student Review of Systems All Other Systems at this time: Reviewed and Negative ROS As stated above in the HPI, otherwise all systems are reviewed and negative. Physical Exam Vital Signs: Temperature: 97.8, Source: Oral, Heart Rate: 95, Respiratory Rate: 16, BP: 139/93, Pulse Oximetry: 98, Weight: 113.550 Physical Exam General: Alert, no apparent distress. HEENT: PERRL, EOMI, no injection, moist mucous membranes. Neck: Full range of motion. Cardiovascular: Regular rate and rhythm, no murmurs. Neurologic: Oriented x4. Psychiatric: Normal mood and affect. Skin: Normal color, warm and dry. No edema, no ecchymosis. Progress Results/Orders Results/Orders Vital Signs 01/20/25 01/20/25 15:37 16:41 Temp 98.2 97.8 Pulse 103 95 Resp 15 16 B/P (MAP) 166/99 139/93 (108) Pulse Ox 98 98 Medical Decision Making Findings pt left w/out treatment Differential Dx:Considerations: Include: TSANG-Cluster, TSANG-Migraine, TSANG- Hypertensive, TSANG-Muscular contraction, TSANG-Post lumbar puncture, Carbon monoxide toxicity, Close head injuyr, CVA, Fever induced, Hemorrhage-Epidural, Hemorrhage-Intracerebral, Hemorrhage-Subarachnoid, Hemorrhage-Subdural, Mass lesion, Meningitis, Post-traumtic, Pseudotumor cerebri, Sinusitis, Temporal arteritis, Trigeminal neuralgia, Other Departure Disposition: 07 LEFT AWOL/ELOPED Impression: Primary Impression: Head ache Referrals: NO PRIMARY CARE PROVIDER (PCP) Signature Scribe Signature: b Attestation: Scribed for Emergency,Department by Larry Mckoy NP . 01/20/25 23:41 LARRY CLANCY NP Jan 20, 2025 16:46
== END 2025-01-21 06:25 | disposition left against medical advice (07) ==
LOC: ER 15:27
DX: R51.9 Headache, unspecified (principal); R07.9 Chest pain, unspecified; R53.81 Other malaise; F41.9 Anxiety disorder, unspecified; F32.A Depression, unspecified; M79.7 Fibromyalgia; K21.9 Gastro-esophageal reflux disease without esophagitis; F12.90 Cannabis use, unspecified, uncomplicated; Z88.5 Allergy status to narcotic agent
CPT/HCPCS: 93005; 99283

== ENCOUNTER 2025-04-11 09:06 | Emergency (ER) | payer MEDICAID ==
[~2025-04-11] VITALS: Ht 172.7 cm; Wt 149.0 kg
[2025-04-11 09:17] VITALS: TEMP 97.6
--- NOTE | 2025-04-11 09:25 | Physician Documentation ---
History of Present Illness ~ Chief Complaint: Cold, cough & congestion Stated Complaint: FLU AND COLD SYMPTOMS Time Seen by MD: 09:21 Primary Medical Doctor: [facility] HPI This is a 25-year-old previously healthy female who presents for evaluation of fever, malaise, muscle aches, and "lung pain" for the last several days. Known infectious exposure in her relatives. No particular palliating or aggravating factors. Did not attempt to test herself for COVID. Reports fever with a T-max of 101.0. Reports productive cough. She worries that she has a pneumonia. Does not smoke, does not drink, does not do drugs. LMP: Two weeks ago Medication Reconciliation Allergies: Coded Allergies: hydrocodone (Verified Allergy, Mild, RASH, VOMITING, 03/19/24) Uncoded Allergies: NARCOTICS (Allergy, Severe, 11/16/23) Scheduled Apixaban (Eliquis), 1 TAB PO Q12H Clindamycin HCl (Clindamycin HCl CAPSULE), 1 CAP PO TID Clindamycin Phos/Benzoyl Perox (Clind pH-Benzoyl Perox 1.2-5%), 1 APPLIC TOP DAILY Diphenhydramine Hcl (Benadryl), 1 CAP PO HS Docusate Sodium (Docusate Sodium), 2 ML TOP BID Lidocaine Hcl (Xylocaine Viscous), 5 ML PO Q2H PRN SORE THROAT Ondansetron Hcl (Zofran), 1 TAB PO Q6H Polyethylene Glycol 3350 (Miralax), 17 GM PO DAILY Tretinoin (Retin-A), 1 APPLIC TOP HS Scheduled PRN ONDANSETRON ODT 4mg tablet (Ondansetron Odt), 1 TAB PO Q6H PRN PRN for nausea/vomiting Ondansetron HCl (Ondansetron HCl), 1 TAB PO Q6H PRN PRN for nausea/vomiting Miscellaneous Medications Home Med List (No Home Medications), (Reported) Past Medical History Past Medical History: No Pertinent History, Pneumonia, GERD, *MUSCULOSKELETAL*, Deep Vein Thrombosis, Fibromyalgia, Anxiety, Depression Past Surgical History: other Other Past Surgical History: Pilonidal cystectomy x2 Alcohol Use: Occasionally Drug Use: marijuana Lives with: Family Lives In: Home Occupation: student Review of Systems ROS 10 point review of systems was performed and unless noted above in HPI is negative for acute process/complaint. Physical Exam Vital Signs: Temperature: 97.6, Source: Temporal, Heart Rate: 109, Respiratory Rate: 16, BP: 143/93, Pulse Oximetry: 98, Weight: 149.000 Oxygen Flow Rate: 0 Physical Exam GENERAL: Awake, alert, oriented, GCS 15, no apparent distress, non-toxic appearing, answers questions, follows commands appropriately. Examined in triage HEENT: Atraumatic, normocephalic, pupils equal, extraocular muscles intact, sclerae anicteric, mucus membranes moist, oropharynx is clear, no stridor. NECK: supple, full active range of motion, trachea midline, no thyromegaly, no lymphadenopathy, no JVD. CARDIOVASCULAR: Tachycardic and regular rate/rhythm, no murmurs/gallops/rubs, Pulses are 2+ in all extremities and symmetric. Capillary refill less than 2 seconds. PULMONARY: Nonlabored, good air movement ,no respiratory distress, speaking in full sentences, coarse breath sounds bilaterally, no wheezing, no ronchi, no rales, no accessory muscle use. GASTROINTESTINAL: Soft, non-tender, non-distended, normal active bowel sounds, no organomegaly, no pulsatile masses, no CVA tenderness. NEUROLOGIC: Lucid with normal mental status. Normal facial symmetry. Moves all extremities symmetrically and with purpose. No truncal ataxia. Speech is fluid without evidence of dysarthria or aphasia, no focal deficits appreciated. MUSCULOSKELETAL: There is full range of motion of all extremities. There is no joint pain or joint swelling or joint erythema. There is no muscle pain or tenderness or swelling. EXTREMITIES: warm, well-perfused, no cyanosis, no clubbing, no edema, no acute deformities. Skin: warm, dry, no rashes or lesions, no jaundice, no petechiae orpurpura. No ecchymosis. PSYCHIATRIC: Normal affect, normal insight, normal concentration. Focused exam: [] Progress Results/Orders Results/Orders Orders - JASPER WEBB DO Covid19 Binax Poc Result Entry (04/11/25 09:21) Chest,Two Views (04/11/25 09:21) Completed Orders - JASPER WEBB DO Chest,Two Views (04/11/25 09:21) Vital Signs 04/11/25 09:17 Temp 97.6 Pulse 109 Resp 16 B/P (MAP) 143/93 Pulse Ox 98 O2 Flow Rate 0 Laboratory Tests Test 04/11/25 09:21 SARS-CoV-2 Antigen (Rapid) Negative Medical Decision Making Findings Facility Status: ED Holds, RME process The plan was discussed with the patient, who demonstrates clear understanding of the plan and is in agreement with the plan unless otherwise noted in the chart. All questions have been answered, all concerns were addressed unless otherwise documented. I was available throughout their ED stay for frequent reassessment and questions. Differential Diagnoses (considered and possible or likely): [COVID, influenza, RSV, upper respiratory infection with the top of the viruses, bacterial pneumonia. Unlikely ACS as she has no risk factors.] ??Differential Diagnoses (considered and unlikely, not requiring evaluation currently): [See above. Very low suspicion for PE.] MDM Data Please see HPI for the following: Independent Historians and external Records Review. Historian: [Patient] Independent Historians: ?[Record review] Medication Management: [Reviewed medication list] Social History and determinants: [Reviewed] Please see the body of the note for the following: Any independent interpretations of ECG, imaging studies. All vitals signs/haemodynamics, ordered tests were independently reviewed and interpreted by myself. Nursing triage complaint and vitals reviewed, additional nursing notes were reviewed as available and I agree unless otherwise noted or documented in contradiction in the chart Vital Signs: Independently reviewed Labs: Independently interpreted Imaging: Independently interpreted Old Medical Records: Independently reviewed, see HPI for relevant summary and information Pulse Oximetry: [98%] interpreted as [normal on room air] by me Additionally notably showing: [Hemodynamically she is stable. Initial tachycardia has a resolved. COVID is negative. Chest x-ray shows no pneumonia.] Tests considered but not ordered include: [Well-appearing, does not require blood work at this time.] Social Determinants of Health Impact: Patient was evaluated in [facility] [place] access to healthcare due to below par ratio of patient to medical providers. [] Comorbid Conditions Impacting Present Evaluation and Care/Treatment: [None] Management Discussions with other Healthcare Providers: [None] Treatment and Disposition Medication Management (Given or considered): []. See EMR for details Consideration for Hospitalization/Escalation/Deescalation of Care: Admission for observation has been considered, [however the patient is able to tolerate p.o., their symptoms are controlled, they are able to rely on oral medications, and their chief complaint/diagnosis can be managed on outpatient basis.] ?ED Course:?[No clinical deterioration] ?Shared decision making:?[Patient is hemodynamically stable for discharge home with follow with their primary care provider. [ ] Specific and cautious return precautions provided and discussed with full understanding. Any incidental findings were also discussed and follow up recommendations given. [] All questions answered. Patient/family were able to verbalize back return precautions. Patient/family agree to plan. Copies of imaging and laboratory studies were provided.] Code status:?FULL Please see the full Electronic Medical Record for full details of nursing documentation, medications list, other records of complete past medical history and conditions, vital signs, laboratory studies, and any radiologic study interpretations by radiologists. Portions of this note were completed using [employer] dictation software and as a result there may exist minor errors in spelling. I have reviewed elements of past family and social history and agree as included in note. Departure Disposition: 01 HOME / SELF CARE / HOMELESS Impression: Primary Impression: URI (upper respiratory infection) Condition: Stable Discharge Instructions: Upper Respiratory Infection, Adult Additional Instructions: Your COVID test with a negative. Your chest x-ray does not show pneumonia. Referrals: NO PRIMARY CARE PROVIDER (PCP) Education Educated: Patient Educated regarding: diagnosis, treatment, prognosis, need for follow up Signature Scribe Signature: No scribe Attestation: This note accurately reflects clinical decisions, work performed by myself, Jasper Webb, JASPER CASTELLANOS DO Apr 11, 2025 09:24
--- NOTE | 2025-04-11 10:11 | RADIOLOGY REPORT ---
EXAM: DI CHEST,TWO VIEWS HISTORY: Cough, fever COMPARISON: Chest x-ray dated 09/25/2022. TECHNIQUE: Frontal and lateral views of the chest were performed. FINDINGS: No pneumothorax, pulmonary edema, pleural effusions, or consolidative infiltrates. The heart is not enlarged. No fractures are identified about the bony thorax. There is abundant overlying adipose tissue. IMPRESSION: Obesity without evidence of acute intrathoracic process.
[2025-04-11 12:01] VITALS: BP 114/67; PULSE 89; RESP 18; O2SAT 98
== END 2025-04-11 12:03 | disposition home or self-care (01) ==
LOC: ER 09:06
DX: J06.9 Acute upper respiratory infection, unspecified (principal); Z88.5 Allergy status to narcotic agent; Z88.8 Allergy status to other drugs, medicaments and biological substances; Z20.822 Contact with and (suspected) exposure to COVID-19
CPT/HCPCS: 36415; 71046; 87811; 99284

== ENCOUNTER 2025-04-30 15:17 | Outpatient (CLI) | payer MEDICAID ==
--- NOTE | 2025-04-30 17:29 | RADIOLOGY REPORT ---
EXAM: CT CT ABDOMEN HISTORY: GENERALIZED ABDOMINAL PAIN TECHNIQUE: Volumetric multidetector CT images of the abdomen and pelvis were obtained after the administration of intravenous contrast. All CT scans at this facility use dose modulation, iterative reconstruction, and/or weight based dosing when appropriate to reduce radiation dose to as low as reasonably achievable. COMPARISON: CT CT ABDOMEN PELVIS on DOS: 08/14/23 FINDINGS: [LOWER CHEST]: The partially visualized lung bases are clear without a pleural effusion. [LIVER]: Normal hepatic size without suspicious focal lesion. [GALLBLADDER AND BILIARY TREE]: No cholelithiasis. [SPLEEN]: Unremarkable. [PANCREAS]: Unremarkable. [ADRENAL GLANDS]: Unremarkable [KIDNEYS]: No hydronephrosis. No nephroureterolithiasis. No suspicious focal lesion. [BLADDER]: Unremarkable for the degree distention. [REPRODUCTIVE ORGANS]: Unremarkable. [BOWEL/MESENTERY]: Stomach is normal. No CT evidence of bowel obstruction. Normal appendix. [ASCITES]: Absent [LYMPHADENOPATHY]: No pathologically enlarged lymph nodes by CT size criteria [VASCULATURE]: No aneurysmal dilatation. [ABDOMINAL WALL]: Unremarkable. [MUSCULOSKELETAL]: No acute fracture or aggressive focal osseous lesion. IMPRESSION: 1. No CT evidence of an acute abdominal/pelvic process.
== END 2025-04-30 23:59 | disposition home or self-care (01) ==
LOC: RAD 15:17
PROVIDERS: ATTEND Student in an Organized Health Care Education/Training Program
DX: R10.84 Generalized abdominal pain (principal)
CPT/HCPCS: 74150

== ENCOUNTER 2025-05-18 20:11 | Emergency (ER) | payer MEDICAID ==
[~2025-05-18] VITALS: Ht 172.7 cm; Wt 146.2 kg
[2025-05-18 20:13] VITALS: BP 134/80; PULSE 98; RESP 18; TEMP 98; O2SAT 98
--- NOTE | 2025-05-18 20:49 | Physician Documentation ---
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 This occurred almost a month ago continued pain swelling and throbbing. Patient did not not seek initial medical care Tetanus within 5 years: Yes Medication Reconciliation Allergies: Coded Allergies: hydrocodone (Verified Allergy, Mild, RASH, VOMITING, 03/19/24) Uncoded Allergies: NARCOTICS (Allergy, Severe, 11/16/23) Scheduled Apixaban (Eliquis), 1 TAB PO Q12H Clindamycin HCl (Clindamycin HCl CAPSULE), 1 CAP PO TID Clindamycin Phos/Benzoyl Perox (Clind pH-Benzoyl Perox 1.2-5%), 1 APPLIC TOP DAILY Diphenhydramine Hcl (Benadryl), 1 CAP PO HS Docusate Sodium (Docusate Sodium), 2 ML TOP BID Lidocaine Hcl (Xylocaine Viscous), 5 ML PO Q2H PRN SORE THROAT Ondansetron Hcl (Zofran), 1 TAB PO Q6H Polyethylene Glycol 3350 (Miralax), 17 GM PO DAILY Tretinoin (Retin-A), 1 APPLIC TOP HS Scheduled PRN ONDANSETRON ODT 4mg tablet (Ondansetron Odt), 1 TAB PO Q6H PRN PRN for nausea/vomiting Ondansetron HCl (Ondansetron HCl), 1 TAB PO Q6H PRN PRN for nausea/vomiting Miscellaneous Medications Home Med List (No Home Medications), (Reported) Past Medical History Past Medical History: No Pertinent History, Pneumonia, GERD, *MUSCULOSKELETAL*, Deep Vein Thrombosis, Fibromyalgia, Anxiety, Depression Past Surgical History: other Other Past Surgical History: Pilonidal cystectomy x2 Alcohol Use: Occasionally Drug Use: marijuana Lives with: Family Lives In: Home Occupation: student Review of Systems All Other Systems at this time: Reviewed and Negative Musculoskeletal: Reports: see HPI Physical Exam Vital Signs: RN Vital Signs have been reviewed: Yes, Temperature: 98.0, Source: Temporal, Heart Rate: 98, Respiratory Rate: 18, BP: 134/80, Pulse Oximetry: 98, Weight: 146.200 Oxygen Flow Rate: 0 Physical Exam General: Alert, no apparent distress. HEENT: moist mucous membranes. Neck: Full range of motion. Respiratory: No respiratory distress speaking in full sentences Chest: No accessory muscle use. Cardiovascular: Appears well perfused Musculoskeletal, no obvious deformity bruising or swelling CMS intact distally to left upper arm pain to the proximal portion of the radius. Full range of motion slow due to pain Neurologic: Oriented x4. Psychiatric: Normal mood and affect. Skin: Normal color, warm and dry. No edema, no ecchymosis. Progress Results/Orders Results/Orders Orders - FLORI DO HEALTH EVALUATOR Forearm,Incl.One Joint (05/18/25 20:46) Completed Orders - FLORI DO HEALTH EVALUATOR Forearm,Incl.One Joint (05/18/25 20:46) Vital Signs 05/18/25 20:13 Temp 98.0 Pulse 98 Resp 18 B/P (MAP) 134/80 Pulse Ox 98 O2 Flow Rate 0 EKG/XRAY/CT/US/VASC/MRI Bone/Soft Tissue X-Ray (Ext.) : Additional Comment EXAM: DI FOREARM,INCL.ONE JOINT REASON FOR EXAM: Proximal forearm pain after slammed in van door almost a month ago TECHNIQUE: AP and lateral views of the left forearm are submitted for review. COMPARISON: DI FINGER(S) on DOS: 08/27/24 FINDINGS: The bones demonstrate normal mineralization. There is no acute fracture or dislocation. The soft tissues are within normal limits. IMPRESSION: Normal radiographic appearance of the forearm. Medical Decision Making Additional information obtaine: N/A Findings Patient had traumatic accident although a month ago an x-ray to evaluate for any osseous abnormality including fracture as there is throbbing pain although no deformity CMS intact. General Diff Dx:Considerations: Unlikely: Abrasion, Contusion, Fracture, Hematoma, Laceration, Malunion, Neurovascular injury, Open fracture, Sprain, Ulcer, Other Shoulder Diff Dx:Consideration: Unlikely: AC separation, Adhesive capsulitis, Arthritis, Bicipital tendonitis, Calcific tendonitis, Cervical disc disease, Contusion, Dislocation, Fracture-humerus, Fracture-scapula, Fracture-clavicle, GB disease, Hematoma, Impingement syndrome, Myocardial infarction, Neurovascular injury, Open fracture-humerus, Open fracture-scapula, Open fracture-clavicle, Rotator cuff injury, SC dislocatoin, Sprain, Subacromial bursitis, Other Elbow Diff Dx:Considerations: Include: Contustion, DJD, Fracture-radius, Sprain, Other Wrist Diff Dx:Considerations: Unlikely: Abrasion, Arthritis, DJD, Gout, Rheumatoid, Septic, Carpal tunnel snydrome, Contusion, Dislocation, Fracture- carpal, Fracture-radius, Fracture-ulna, Ganglion, Laceration, Neurovascular injury, Open fracture, Strain, Other Hand Diff Dx:Considerations: Unlikely: Abrasion, Arthritis, Contusion, DJD, Felon, Fracture-carpal, Fracture-metacarpal, Fracture-phalynx, Fracture-radius, Fracture-ulna, Gout, Hematoma, Herpetic mamadou, Laceration, Neurovascular injury, Open fracture, Paronychia, Rheumatoid arthritis, Septic, Sprain, Subungual hematoma, Tenosynovitis, Volar plate injury, Cellulitis, Malunion, Other Finger Diff Dx:Considerations: Unlikely: Abrasion, Cellulitis, Contusion, Dislocation, Fracture, Hematoma, Laceration, Neurovascular injury, Open fracture, Subungual hematoma, Other Departure Time of Disposition: 21:15 Disposition: 01 HOME / SELF CARE / HOMELESS Impression: Primary Impression: Forearm strain Condition: Stable Discharge Instructions: Sprain, [id number] Additional Instructions: Your x-ray was negative for any acute fractures. Take Tylenol ibuprofen for [id number] pain follow up with primary care Referrals: NO PRIMARY CARE PROVIDER (PCP) Education Educated: Patient Educated regarding: diagnosis, treatment, need for follow up Signature Scribe Signature: No scribe Attestation: The note accurately reflects work and decisions made by me.Flori TONEY 05/18/25 20:49 FLORI DO NP May 18, 2025 20:49
--- NOTE | 2025-05-18 21:05 | RADIOLOGY REPORT ---
EXAM: DI FOREARM,INCL.ONE JOINT REASON FOR EXAM: Proximal forearm pain after slammed in van door almost a month ago TECHNIQUE: AP and lateral views of the left forearm are submitted for review. COMPARISON: DI FINGER(S) on DOS: 08/27/24 FINDINGS: The bones demonstrate normal mineralization. There is no acute fracture or dislocation. The soft tissues are within normal limits. IMPRESSION: Normal radiographic appearance of the forearm.
== END 2025-05-18 21:27 | disposition home or self-care (01) ==
LOC: ER 20:12
DX: S56.812A Strain of other muscles, fascia and tendons at forearm level, left arm, initial encounter (principal); K21.9 Gastro-esophageal reflux disease without esophagitis; F41.9 Anxiety disorder, unspecified; F32.A Depression, unspecified; M79.7 Fibromyalgia; F12.90 Cannabis use, unspecified, uncomplicated; Z86.718 Personal history of other venous thrombosis and embolism; Z88.5 Allergy status to narcotic agent; Z79.899 Other long term (current) drug therapy; Z72.89 Other problems related to lifestyle; W22.09XA Striking against other stationary object, initial encounter; Y93.89 Activity, other specified; Y92.89 Other specified places as the place of occurrence of the external cause; Y99.8 Other external cause status
CPT/HCPCS: 73090; 99283